=== PATIENT | female | born 1955 | race Caucasian/White ===

== ENCOUNTER → 2017-07-10 | Outpatient (CLI) | payer OTHER ==
[~2017-07-10] MED LIST: ATEN-173 PO; CYAN500T13 PO; ERGO500037 PO; FERR1TAB13 PO; FEXO1TAB58 PO; FOLI1TAB8 PO; FRS/40 PO; FURO-85 PO; GLC/500 PO; HYDR200T5 PO; HYDROCORTISONE PO; LEVO200T PO; POTA10CA28 PO; PRAV20TA PO; PSEU30TA PO; SERT50TA PO; SNG10 PO; TRAM-10 PO; WARF5TAB7 PO
== END | disposition home or self-care (01) ==
LOC: C.CTS 12:10
PROVIDERS: ATTEND Orthopaedic Surgery
DX: M19.011 Primary osteoarthritis, right shoulder (principal)

== ENCOUNTER 2017-08-10 06:18 | Inpatient (IN) | payer OTHER ==
[2017-07-10 13:19] VITALS: Ht 162.6 cm; Wt 101.2 kg
--- NOTE | 2017-07-10 14:09 | PAT Medication Instructions ---
Service Date Jul 10, 2017. Current Home Medication List Atenolol (Tenormin), 25 MG PO QAM Cyanocobalamin (Vitamin B12 500MCG), 500 MCG PO QAM Ergocalciferol (Vitamin D 80227 Unit), 50,000 UNIT PO Q2WK Ferrous Sulfate (Kp Ferrous Sulfate), 1 TAB PO QPM Fexofenadine-Pseudoephedrine (Olive-D 24 Hour Allergy), 1 TAB PO QAM Folic Acid (Folvite), 1 MG PO QAM Furosemide (Lasix), 20 MG PO QAM Furosemide (Lasix), 40 MG PO QAM Hydroxychloroquine Sulfate (Plaquenil), 200 MG PO QAM Levothyroxine Sodium (Synthroid), 200 MCG PO QAM Metformin Hcl (Glucophage), 500 MG PO QAM Montelukast Sod (Montelukast Sodium), 1 TAB PO QAM Potassium Chloride (Micro-K Ext Rel), 20 MEQ PO QAM Pravastatin (Pravachol ), 80 MG PO QPM Pseudoephedrine Hcl (Eq Suphedrine), 1 TAB PO QAM Sertraline (Zoloft), 50 MG PO QAM Tramadol (Ultram), 50 MG PO Q4H PRN for Pain Warfarin Sod (Jantoven), 5 MG PO M,T,W,R,F,SAT [Hydrocortisone], 10 MG PO QAM [Hydrocrortisone], 5 MG PO QPM Medication Instructions For Your Scheduled Surgery -Continue as directed: Ergocalciferol (Vitamin D 43736 Unit), 50,000 UNIT PO Q2WK -Contact your prescriber for instructions for: Warfarin Sod (Jantoven), 5 MG PO M,T,W,R,F,SAT - Hold the following medications 48 hours prior to surgery: Metformin Hcl (Glucophage), 500 MG PO QAM - Hold the following medications the morning of surgery: Folic Acid (Folvite), 1 MG PO QAM Furosemide (Lasix), 20 MG PO QAM Furosemide (Lasix), 40 MG PO QAM Fexofenadine-Pseudoephedrine (Olive-D 24 Hour Allergy), 1 TAB PO QAM Pseudoephedrine Hcl (Eq Suphedrine), 1 TAB PO QAM Potassium Chloride (Micro-K Ext Rel), 20 MEQ PO QAM Cyanocobalamin (Vitamin B12 500MCG), 500 MCG PO QAM - Take the following medications the morning of surgery with a sip of water: [Hydrocortisone], 10 MG PO QAM Tramadol (Ultram), 50 MG PO Q4H PRN for Pain (if needed, can be taken up to four hours before surgery) Atenolol (Tenormin), 25 MG PO QAM Montelukast Sod (Montelukast Sodium), 1 TAB PO QAM Hydroxychloroquine Sulfate (Plaquenil), 200 MG PO QAM Levothyroxine Sodium (Synthroid), 200 MCG PO QAM Sertraline (Zoloft), 50 MG PO QAM - Take the following medications as scheduled the night before surgery: [Hydrocrortisone], 5 MG PO QPM Tramadol (Ultram), 50 MG PO Q4H PRN for Pain (if needed) Pravastatin (Pravachol ), 80 MG PO QPM Ferrous Sulfate (Kp Ferrous Sulfate), 1 TAB PO QPM If you have any questions please call us at [phone] or [phone] or [phone]
--- NOTE | 2017-07-10 15:00 | DIAGNOSTIC IMAGING REPORT ---
CHEST 2 VIEWS ROUTINE CLINICAL HISTORY: Preoperative chest COMPARISON STUDY: No previous studies for comparison. FINDINGS: The cardiac and mediastinal contours are normal. There is no evidence of focal pulmonary consolidation. There is no evidence of failure. No pleural effusions are visualized.[ There is mild basilar interstitial thickening. IMPRESSION: No active disease in the chest. Electronically signed by: Lior Parekh M.D. 07/10/2017 2:59 PM Dictated Date/Time: 07/10/2017 2:58 PM
[2017-07-10 15:12] LABS: BASO % 0.2 %; BASO ABS # 0.01 K/uL (0-0.2); EOS % 0.3 %; EOS ABS # 0.02 K/uL (0-0.5); HEMATOCRIT 38.7 % (37-47); IG# 0.02 K/uL (0.00-0.02); LYMPH % 11.6 %; LYMPH ABS # 0.69 K/uL (1.2-3.4); MEAN CELL VOLUME 89.2 fL (80-100); MEAN CORPUSCULAR HGB CONC 33.6 g/dl (32-36); MEAN PLATELET VOLUME 9.9 fL (7.4-10.4); MONO % 1.2 %; MONO ABS # 0.07 K/uL (0.11-0.59); NEUT % 86.4 %; NEUT ABS # 5.15 K/uL (1.4-6.5); PLATELET COUNT 206 K/uL (130-400); RED CELL DISTRIBUTION WIDTH CV 13.5 % (11.5-14.5); RED CELL DISTRIBUTION WIDTH SD 44.3 fL (36.4-46.3); WHITE BLOOD COUNT 5.96 K/uL (4.8-10.8)
[2017-07-10 15:26] LABS: INR 2.5 (0.9-1.1); PTT PATIENT 38.3 SECONDS (21.0-31.0)
[2017-07-10 16:41] LABS: CALCIUM 8.7 mg/dl (8.5-10.1); CREATININE 0.62 mg/dl (0.60-1.20); POTASSIUM 4.2 mmol/L (3.5-5.1)
--- NOTE | 2017-08-09 14:43 | HISTORY & PHYSICAL EXAMINATION ---
DATE OF ADMISSION: 08/10/2017 HISTORY AND PHYSICAL ADMISSION NOTE CHIEF COMPLAINT: Avascular necrosis of the right shoulder. HISTORY OF PRESENT ILLNESS: Mariela is a pleasant 62-year-old female who has been having 4-month history of increasing right shoulder pain. She was reaching into her dryer to lift some laundry when she began having the pain in the shoulder. She saw her primary care physician who sent for an MRI. The MRI showed signs of avascular necrosis of the humeral head which looked as though about ready to collapse. After failing conservative treatment, she elected to proceed with total shoulder arthroplasty. PAST MEDICAL HISTORY: Significant for hypertension, hyperlipidemia, irregular heartbeat, TIA, diabetes, hypothyroidism, anemia, GERD, obesity, and hiatal hernia. PAST SURGICAL HISTORY: Significant for appendectomy, surgery to her right sinus cavity, an ORIF of the left femur and left tibia, removal of screws from the left femur, intramedullary nail fixation of the left femur, exploratory surgery of her bowels, left rotator cuff repair, lumbar laminectomy, and cholecystectomy. MEDICATIONS: Include Coumadin, hydrocortisone, Singulair, Synthroid, atenolol, metformin, Lasix, Zoloft, potassium chloride, folic acid, vitamin D3, ferrous sulfate, chlorothiazide, pravastatin, vitamin B12, tramadol, Olive SOCIAL HISTORY: She denies any tobacco, alcohol or IV drug use. FAMILY HISTORY: Denies. ALLERGIES: None. REVIEW OF SYSTEMS: She complains mostly of right shoulder pain. All other pertinent review of systems is negative. PHYSICAL EXAMINATION: GENERAL: She is awake, alert and orient x3. She is in no apparent distress. She is very pleasant. HEENT: Pupils equal, round, reactive to light. Extraocular motion was intact. Oral mucosa is pink, moist. HEART: Regular rate per radial pulse. LUNGS: Paola symmetrically bilaterally with no audible breath sounds. ABDOMEN: Soft, nontender, nondistended. MUSCULOSKELETAL: On physical examination of the shoulder, actively she has about 100 degrees of forward elevation, 100 degrees of abduction. Passing a little further, but she has a lot of pain. Most of her pain is over the anterior glenohumeral joint line and in the subacromial space. She has some pain in the area of the biceps as well. She has 4+/5 motion with full can testing mostly secondary to pain, 5/5 motion with external rotation. Negative belly press test. IMAGING DATA: MRI of the shoulder shows signs of avascular necrosis of the humeral head. It looks like it is about ready to collapse. There is questionable partial tearing of the rotator cuff. IMPRESSION: Avascular necrosis of the right shoulder. PLAN: Will proceed with a Biomet comprehensive right total shoulder arthroplasty. Postoperatively, she will be placed in an arm sling and kept overnight in the hospital for postoperative medical management. NAS
[~2017-08-10] VITALS: Ht 162.6 cm; Wt 101.2 kg
[2017-08-10] VITALS (9 sets, daily range): BP systolic 110–135; BP diastolic 69–83; PULSE 55–77; TEMP 36.5–36.9; O2SAT 92–98
[~2017-08-10 06:18] MED LIST changes: +ACETAMINOPHEN 500 MG TAB PO SCH; +CEFAZOLIN 2000MG IV PUSH 15 ML IV SCH; +FAMOTIDINE 20 MG TAB PO SCH; +GABAPENTIN 600 MG PO SCH; +LACTATED RINGER'S 1000ML IV SCH; +ROPIVACAINE 5MG/ML 30 ML 150 MG, BUPIVACAINE 0.5% MPF INJ 30 ML, EpINEphrine HCL INJ 0.... INFIL SCH; +SCOPOLAMINE 1.5 MG TDSY TD SCH
[2017-08-10] MEDS ORDERED: ROPIVACAINE 0.5% 5 MG/ML 30 ML VIAL ONE (06:29)
[2017-08-10] MEDS ORDERED: DEXAMETHASONE SOD INJ 4 MG/ML VIAL ONE ×2 (06:29→10:06)
--- NOTE | 2017-08-10 06:50 | History & Physical Bridge Note ---
H&P Re-Evaluation Bridge Note: I have examined the patient, reviewed the History & Physical and in the interval since the performance of the History & Physical I have noted the following changes of clinical significance: No changes noted
[2017-08-10 07:34] LABS: INR 1.3 (0.9-1.1); PTT PATIENT 29.3 SECONDS (21.0-31.0)
[2017-08-10] MEDS ORDERED: ENOX120I SQ (07:38)
[2017-08-10] MEDS ORDERED: MIDAZOLAM HCL 1 MG/ML 2ML VIAL ONE ×2 (08:18→08:31)
[2017-08-10] MEDS ORDERED: FENTANYL CITRATE INJ 50 MCG/1 ML 2 ML VIAL ONE ×2 (08:18→08:30)
[2017-08-10] MEDS: TRANEXAMIC ACID INJ 1,000 MG x 2 Bags IV SCH ×4 (08:24→13:43)
[2017-08-10] MEDS ORDERED: PROPOFOL IV EMULSION 10 MG/ML 20 ML VIAL IV ONE (08:29)
[2017-08-10] MEDS ORDERED: LIDOCAINE HCL 2% 2 ML VIAL (20MG/ML) ONE (08:29)
[2017-08-10] MEDS ORDERED: ORTHO JOINT ANESTHETIC ONE (08:49)
[2017-08-10] MEDS ORDERED: BACITRACIN 50000 UNIT VIAL ONE (08:49)
[2017-08-10] MEDS ORDERED: ATROPINE SULFATE 0.1 MG/ML 5ML SYR IV PRN (09:00)
[2017-08-10] MEDS ORDERED: ONDANSETRON INJ 2 MG/ML 2 ML VIAL IV PRN ×2 (09:00→11:15)
[2017-08-10] MEDS ORDERED: EpHEDrine SULFATE INJ 50 MG/ML AMP IV PRN (09:00)
[2017-08-10] MEDS ORDERED: PHENYLEPHRINE 100MCG/ML 5ML SYR IV PRN (09:00)
[2017-08-10] MEDS ORDERED: HYDROmorphone INJ 2 MG/ML SYR/VIAL IV PRN (09:00)
[2017-08-10] MEDS ORDERED: ONDANSETRON INJ 2 MG/ML 2 ML VIAL ONE (10:06)
[2017-08-10] MEDS ORDERED: EpHEDrine SULFATE 50MG/5ML SYR ONE (10:07)
[2017-08-10] MEDS ORDERED: PHENYLEPHRINE HCL INJ 10 MG/ML VIAL ONE (10:19)
[2017-08-10] MEDS ORDERED: ROCURONIUM BROMIDE 10 MG/ML 5 ML VIAL IV ONE (10:20)
[2017-08-10] MEDS ORDERED: NEOSTIGMINE METHYLSULFATE 5 MG/5 ML SYR ONE (10:38)
[2017-08-10] MEDS ORDERED: GLYCOPYRROLATE INJ 0.2 MG/ML VIAL ONE (10:39)
--- NOTE | 2017-08-10 11:00 | [facility] Post Operative Brief Note ---
Immediate Operative Summary Operative Date Aug 10, 2017. Pre-Operative Diagnosis Avascular necrosis of the right shoulder Post-Operative Diagnosis Avascular necrosis of the right shoulder Procedure(s) Performed Right Total Shoulder Arthroplaty Cemented Surgeon Dr. Rahat Lee Door Paneler Surgeon(s) Rahat Hayden PA-c Estimated Blood Loss 150 ml Findings Consistent with Post-Op Diagnosis Specimens Permanent Specimen: A: Humeral Head Anesthesia Type General Regional Complication(s) none Disposition Disposition: Recovery Room / PACU
[2017-08-10] MEDS ORDERED: GLUCOSE 10 TABS/TUBE PO PRN (11:15)
[2017-08-10] MEDS ORDERED: BISACODYL 10 MG SUPP PR PRN (11:15)
[2017-08-10] MEDS ORDERED: METOCLOPRAMIDE HCL INJ 5 MG/ML 2 ML VIAL IV PRN (11:15)
[2017-08-10] MEDS ORDERED: MoRPHine SULFATE 2 MG/ML CARP IV PRN (11:15)
[2017-08-10] MEDS ORDERED: DEXTROSE 50% 50 ML SYR IV PRN (11:15)
[2017-08-10] MEDS ORDERED: MAGNESIUM HYDROXIDE SUSP 30 ML UDC PO PRN (11:15)
[2017-08-10] MEDS ORDERED: SOD PHOSPHATE/SOD BIPHOSPHATE ENEMA 132 ML BTL PR PRN (11:15)
[2017-08-10] MEDS ORDERED: NALOXONE HCL 0.4 MG/1 ML VIAL/CARP IV PRN (11:15)
[2017-08-10] MEDS ORDERED: GLUCOSE 40% GEL 15 GM TUBE PO PRN (11:15)
[2017-08-10] MEDS ORDERED: GLUCAGON FOR INJ 1 MG VIAL SQ PRN (11:15)
[2017-08-10] MEDS ORDERED: OXYCODONE HCL IR 5 MG TAB (IMMEDIATE RELEASE) PO PRN (11:15)
--- NOTE | 2017-08-10 11:49 | DIAGNOSTIC IMAGING REPORT ---
R SHOULDER MIN 2 VIEWS ROUTINE CLINICAL HISTORY: Post shoulder surgery postoperative evaluation COMPARISON: None. DISCUSSION: Anatomic alignment post right shoulder arthroplasty. Surgical drains are in position. Expected soft tissue postoperative change IMPRESSION: Anatomic alignment post right shoulder arthroplasty. The above report was generated using voice recognition software. It may contain grammatical, syntax or spelling errors. Electronically signed by: Aubrey Marley M.D. 08/10/2017 11:48 AM Dictated Date/Time: 08/10/2017 11:47 AM
--- NOTE | 2017-08-10 12:17 | Anesthesiology Progress Note ---
Anesthesia Post Op Note Date & Time Aug 10, 2017 at 12:17 Vital Signs Pain Intensity: 0 Vital Signs Past 12 Hours Date Time Temp Pulse Resp B/P (MAP) Pulse Ox O2 Delivery O2 Flow Rate FiO2 08/10/17 12:05 36.4 65 15 121/66 96 Nasal Cannula 3 08/10/17 11:55 65 15 124/67 96 Nasal Cannula 3 08/10/17 11:45 70 20 125/70 95 Oxymask 10 08/10/17 11:35 74 13 118/63 94 Oxymask 10 08/10/17 11:27 36.2 76 16 129/69 95 Oxymask 10 08/10/17 07:49 36.6 55 20 135/83 96 Room Air Notes Mental Status: alert / awake / arousable, participated in evaluation Pt Amnestic to Procedure: Yes Nausea / Vomiting: adequately controlled Pain: adequately controlled Airway Patency, RR, SpO2: stable & adequate BP & HR: stable & adequate Hydration State: stable & adequate Anesthetic Complications: no major complications apparent
[2017-08-10] MEDS ORDERED: PHARMACY GLYCEMIC MGMT CONSULT PRN (13:23)
--- NOTE | 2017-08-10 13:40 | Pharmacy Progress Note ---
Glycemic Control Intl Consult Date of Service Aug 10, 2017. Scope Glycemic Pharmacist consulted by Dr Lee on 08/10/17 for glycemic control and to write orders per [facility] inpatient glycemic control protocol Objective Weight (Kilograms): 101.2 Accuchecks BSG (last 24hrs): Test 08/10/17 06:39 08/10/17 11:32 08/10/17 13:00 Bedside Glucose 125 mg/dl (70-90) 147 mg/dl (70-90) 149 mg/dl (70-90) Recent Pertinent Medications Outpatient Anti-diabetic Regimen: * Metformin 500mg PO daily Risk Factors for Insulin Resistance: * Steroids * Recent Surgery * Diet Assessment & Plan ASSESSMENT: * 62yo T2DM female with unknown degree of outpatient control. No recent A1c listed in chart. Will order with AM labs tomorrow per glycemic protocol * Pt is maintained on oral antidiabetic agents as an outpatient * Oral agents are not recommended for inpatient use d/t drug interactions, changing PO intake, and difficulty titrating for acute hyper/hypoglycemia. ADA recommends re-initiating outpatient oral agents 1-2 days prior to discharge if/ when appropriate if they were held on admission. * Will hold oral agents for admission and utilize SQ basal bolus insulin regimen which is the recommended regimen for inpatient glycemic control. * Will initiate weight based insulin dosing for insulin gonsalo patient and titrate based on BSG trends. * Will start with weight and stress of 2 since patient received 2 doses of IV dexamethasone but all BSGs <150 mg/dl so far. * Goal is to maintain all BSGs <200 mg/dl (ideally <150 mg/dl) to reduce the risk of mortality, infection, increased LOS etc. PLAN FOR INPATIENT GLYCEMIC CONTROL: * Holding outpatient oral diabetes medications * Will resume POD #1 or #2 when PO intake adequate and renal function assessed * Basal insulin * Lantus 35 units SQ x 1 dose KARLOS * Long acting basal insulin needed to cover long duration of action of dexamethasone * Bolus insulin * NovoLog per scale ACHS or Q6hrs while NPO * Goal Range: Low 110 mg/dL - High 140 mg/dL * Correction Factor: 15 mg/dL/unit * Nutritional / Prandial insulin per carb ratio of 1 unit per 5 grams CHO consumed * A1c with AM labs * Please note that the plan above was derived based on current level of insulin resistance and hospital stress. These recommendations are appropriate for inpatient admission only. Plan of care upon discharge will need to be reassessed to avoid potential outpatient hypo/hyperglycemia. Thank you.
[2017-08-10] MEDS: POTASSIUM CHLORIDE INJ 10 MEQ in SODIUM CHLORIDE 0.9% 1000ML 1,000 ML IV SCH (13:44)
[2017-08-10] MEDS ORDERED: LANTUS PER UNIT CHARGE SQ SCH (14:30)
[2017-08-10] MEDS: ACETAMINOPHEN IV 1,000 MG in EMPTY BAG 0 ML IV SCH ×2 (14:42→22:29)
[2017-08-10] MEDS: KETOROLAC TROMETHAMINE 30 MG/ML VIAL IV. SCH ×2 (14:44→20:25)
[2017-08-10] MEDS: INSULIN ASPART 100 UNITS/ML 3 ML PEN SC SCH ×3 (14:56→22:27)
--- NOTE | 2017-08-10 15:53 | OPERATIVE REPORT ---
DATE OF OPERATION: 08/10/2017 PREOPERATIVE DIAGNOSIS: Avascular necrosis of the right shoulder. POSTOPERATIVE DIAGNOSIS: Same. PROCEDURE: Right total shoulder arthroplasty. SURGEON: Dr. Rahat Lee. ROLL FORMING MACHINE OPERATOR: Rohan Hayden PA-C, whose assistance was necessary for retraction and closure. ANESTHESIA: General with a right interscalene nerve block. COMPLICATIONS: None. CONDITION: Stable to PACU. INDICATIONS: Mariela is a very pleasant 62-year-old female who presented to my office with chronic increasing right shoulder pain. MRI was diagnostic for avascular necrosis of the humeral head. After failing conservative treatment, she elected to undergo a right total shoulder arthroplasty. OPERATION AND FINDINGS: On 08/10/2017, she arrived at [facility] for the above procedure. She was seen in the preoperative holding area and the operative extremity was identified and signed, she was given a preoperative antibiotic and a right interscalene nerve block. She was taken back to the operating room, laid on the table in supine position and put under general anesthesia. She was put into the beachchair position. The right shoulder was prepped and draped in sterile fashion. Time-out was done. The patient's extremity was properly identified. A deltopectoral approach was used. Dissection was taken down through the deltopectoral interval and the anterior shoulder was exposed. The long head of the biceps tendon was tenodesed to the upper border of the major. The subscapularis was tenotomized off the lesser tuberosity with a centimeter of cuff tissue remaining. The proximal humerus was exposed. Sequential reaming of the humerus up to a size 9 reamer was done. Off that reamer, a proximal humeral resection guide was placed. The proximal humerus was resected at 135 degrees of inclination and 30 degrees of retroversion. The head was removed and the glenoid was exposed. Time was spent doing minimal labral release. The Anapsis signature guide was then snapped on to the anterior aspect of the glenoid and a guide pin was placed in the total shoulder arthroplasty hole. A small glenoid was then reamed and a central peg hole was then drilled. Three peripheral peg holes were then drilled and the final glenoid was then cemented into place. The proximal humerus was then exposed. Sequential broaching up to a size 9 broach was done. A size 42 x 18 mm eccentric head was trialed, the shoulder was brought through a full range of motion and felt to be stable. The broach was then removed. A final size 9 mini stem was then impacted into place. A 42 x 18 mm eccentric head was then impacted into place. The shoulder was reduced, brought through a full range of motion and felt to be stable. The subscapularis was tenodesed back to the lesser tuberosity with transosseous FiberWire sutures and [id number] sutures. Two sutures were placed in the lateral rotator interval. The surrounding soft tissues were injected with 100 mL of an orthopedic pain control cocktail. The wound was then irrigated with 3 liters normal saline solution with bacitracin. The axillary nerve was palpated. A drain was placed. Skin was closed with 2-0 Vicryl, 3-0 V-Loc suture and may. She was then placed in a soft dressing and regular arm sling. She was then extubated, transferred to a litter and taken to the post and she came in stable condition. She tolerated the procedure well. IMPLANTS USED: I used a Biomet comprehensive right total shoulder arthroplasty with a small glenoid with a Regenerex post and a size 9 mini pressfit stem with a 42 x 18 mm eccentric head. The glenoid was cemented with Palacos-G cement. I attest to the content of the Intraoperative Record and any orders documented therein. Any exception s are noted below.
[2017-08-10] MEDS: CHECK SCOPOLAMINE PATCH PLACEMENT SCH (16:20)
[2017-08-10] MEDS: CEFAZOLIN IV 2,000 MG in SYRINGE 0 ML IV SCH (17:40)
[2017-08-10] MEDS: DOCUSATE SODIUM 100 MG CAP PO SCH (20:42)
[2017-08-10] MEDS ORDERED: FERROUS SULFATE 325 MG TAB PO SCH (21:00)
[2017-08-10] MEDS ORDERED: HYDROCORTISONE 10 MG TAB PO SCH (21:00)
[2017-08-10] MEDS ORDERED: PRAVASTATIN SOD 40 MG TAB PO SCH (21:00)
[2017-08-10] MEDS ORDERED: SENNA 8.6 MG TAB PO SCH (21:00)
[2017-08-11] MEDS: POTASSIUM CHLORIDE INJ 10 MEQ in SODIUM CHLORIDE 0.9% 1000ML 1,000 ML IV SCH ×2 (00:26→09:06)
[2017-08-11] MEDS: CHECK SCOPOLAMINE PATCH PLACEMENT SCH ×2 (00:26→08:01)
[2017-08-11] MEDS: CEFAZOLIN IV 2,000 MG in SYRINGE 0 ML IV SCH (00:26)
[2017-08-11] MEDS: KETOROLAC TROMETHAMINE 30 MG/ML VIAL IV. SCH ×2 (02:12→08:01)
[2017-08-11 03:04] VITALS: BP 151/81; PULSE 56; TEMP 36.7; O2SAT 96
[2017-08-11] MEDS ORDERED: LEVOTHYROXINE 200 MCG TAB PO SCH (06:00)
[2017-08-11 06:04] LABS: HEMATOCRIT 32.8 % (37-47); HEMOGLOBIN 11.3 g/dL (12.0-16.0); MEAN CELL VOLUME 89.4 fL (80-100); MEAN CORPUSCULAR HEMOGLOBIN 30.8 pg (25-34); MEAN CORPUSCULAR HGB CONC 34.5 g/dl (32-36); PLATELET COUNT 187 K/uL (130-400); RED CELL DISTRIBUTION WIDTH CV 13.9 % (11.5-14.5); RED CELL DISTRIBUTION WIDTH SD 45.8 fL (36.4-46.3); WHITE BLOOD COUNT 14.04 K/uL (4.8-10.8)
[2017-08-11] MEDS: ACETAMINOPHEN IV 1,000 MG in EMPTY BAG 0 ML IV SCH (06:04)
[2017-08-11 06:40] LABS: CALCIUM 8.4 mg/dl (8.5-10.1); CREATININE 0.72 mg/dl (0.60-1.20); POTASSIUM 3.6 mmol/L (3.5-5.1)
[2017-08-11] MEDS ORDERED: RXC5 PO (07:10)
--- NOTE | 2017-08-11 07:11 | Discharge Instructions ---
Discharge Instructions Date of Service Aug 11, 2017. Admission Reason for Admission: Right Shoulder Degenerative Joint Disease Discharge Discharge Diagnosis / Problem: Right Total Shoulder Discharge Goals Goal(s): Decrease discomfort, Improve function Activity Recommendations Activity Limitations: as noted below . Instructions / Follow-Up Instructions / Follow-Up Activity and Therapy Recommendations: * Wear your sling for 3 weeks, unless otherwise instructed. You may remove your sling to shower and to dress, but otherwise, you should be in your sling at all times, including while sleeping * The shoulder replacement is very stable and you can use your hand while in the sling * Physical Therapy should start about 3-5 days from your day of surgery. Therapy will last about 8-12 weeks * You were shown a series of exercises in the hospital. Do these exercises daily including the exercises you were shown in physical therapy. Medications: * Narcotic You will likely be sent home from the hospital with a prescription for the narcotic pain medication that worked best throughout your stay. * Other medications may be prescribed for specific circumstances. If you have any questions, please call the office at . * Resume previous home medications unless otherwise instructed Showering: You may shower 5 days from the day of surgery. Let the soapy shower water run over the may. Do not scrub or soak the incision. Things To Watch For: * Drainage from the incision site that occurs more than one week after your surgery. * Increased redness at the incision site. * Fever above 102 degrees Fahrenheit. * Unusual chest pain or shortness of breath. * Call [facility] at with any of the above problems Follow-Up Visit: Follow-up with Dr. Lee 2-3 weeks after your day of surgery. An appointment was probably scheduled when you signed-up for surgery in the office. If you have any questions call Office Instructions: More detailed instructions as well as Frequently Asked Questions were provided in a folder by our office when you signed-up for surgery. Please review these instructions when you get home. If you have any further questions or concerns, please feel free to call the office at [phone] Current Hospital Diet Patient's current hospital diet: Gluten Free Diet Discharge Diet Recommended Diet: Gluten Free Diet Procedures Procedures Performed: Right Total Shoulder Arthroplaty Cemented Pending Studies Studies pending at discharge: no Laboratory Results Hemoglobin A1c Test 08/11/17 05:35 Range/Units Medical Emergencies . Who to Call and When: Medical Emergencies: If at any time you feel your situation is an emergency, please call 911 immediately. . Non-Emergent Contact Non-Emergency issues call your: Surgeon Call Non-Emergent contact if: wound has increased drainage, wound has increased redness . "Provider Documentation" section prepared by Rahat Lee. . VTE Core Measure Inpt VTE Proph given/why not?: Treatment not indicated
[2017-08-11 07:18] LABS: HEMOGLOBIN A1C 6.7 % (4.5-5.6)
[2017-08-11 07:28] VITALS: BP 122/76; PULSE 52; TEMP 36.7; O2SAT 95
[2017-08-11] MEDS ORDERED: WARFARIN SOD 5 MG TAB PO ONE (07:30)
[2017-08-11] MEDS ORDERED: METFORMIN HCL 500 MG TAB PO SCH (08:30)
--- NOTE | 2017-08-11 08:39 | PROGRESS NOTE ---
DATE: 08/11/2017 CHIEF COMPLAINT: Status post right total shoulder arthroplasty postop day #1 in progress. Mariela was seen and examined at bedside today. Overall, she is doing very well. She has very little pain in her shoulder. She has been up and ambulating to the bathroom last night. She has no complaints. PHYSICAL EXAMINATION: RIGHT SHOULDER: The dressing is clean and dry and the drain is to suction. She is wearing her sling as instructed. Her radial, median and ulnar nerves are checked and intact. Her axillary nerve was not checked yet. LABORATORY DATA: She has an H&H today of 11.3 and 32.8. Her glucose is 155. Her vital signs are all stable on room air. She is voiding on her own. IMAGING: X-rays postoperatively of the right shoulder show the prosthesis to be in anatomic alignment without any evidence of fracture, dislocation or loosening. IMPRESSION: Status post right total shoulder arthroplasty postop day #1. PLAN: At this point, she is doing as well as expected. Her pain is well controlled. She will be seen by physical therapy today for hand, wrist, elbow and pendulum exercises. I started her back on her Coumadin. Last night, I held on her Lovenox for now with concerns of postoperative bleeding with such a high dose. When she goes home today, she can continue her Coumadin and start back on her Lovenox as per the Coumadin Clinic.
[2017-08-11 08:52] VITALS: BP 122/76; TEMP 36.7; O2SAT 95
[2017-08-11] MEDS ORDERED: POTASSIUM CHLORIDE 10 MEQ TABCR PO SCH (09:00)
[2017-08-11] MEDS ORDERED: HYDROCORTISONE 10 MG TAB PO SCH (09:00)
[2017-08-11] MEDS ORDERED: FUROSEMIDE 40 MG TAB PO SCH (09:00)
[2017-08-11] MEDS ORDERED: PSEUDOEPHEDRINE HCL 30 MG TAB PO SCH (09:00)
[2017-08-11] MEDS ORDERED: CYANOCOBALAMIN 500 MCG TAB (VIT B-12) PO SCH (09:00)
[2017-08-11] MEDS ORDERED: HYDROXYCHLOROQUINE SULFATE 200 MG TAB PO SCH (09:00)
[2017-08-11] MEDS ORDERED: MONTELUKAST SOD 10 MG TAB PO SCH (09:00)
[2017-08-11] MEDS ORDERED: MULTIVITAMIN TAB PO SCH (09:00)
[2017-08-11] MEDS ORDERED: SERTRALINE HCL 50 MG TAB PO SCH (09:00)
[2017-08-11] MEDS: DOCUSATE SODIUM 100 MG CAP PO SCH (09:37)
[2017-08-11] MEDS: INSULIN ASPART 100 UNITS/ML 3 ML PEN SC SCH (09:42)
[2017-08-11 09:46] VITALS: PULSE 54; PULSE 64
--- NOTE | 2017-08-11 13:33 | DISCHARGE SUMMARY ---
DISCHARGE DIAGNOSES: Avascular necrosis of the right shoulder. PROCEDURE: Right total shoulder arthroplasty on 08/10/[address] Rahat Lee. DISCHARGE INSTRUCTIONS: 1. Oxycodone 5 mg every 4 hours as needed for pain. 2. Continue Coumadin 5 mg daily as per Coumadin clinic. 3. Start back up on Lovenox 120 mg every 12 hours as per Coumadin clinic, starting later today. 4. Atenolol 25 mg daily. 5. Vitamin B12 500 mcg daily. 6. Vitamin D 50,000 units every 2 weeks. 7. Ferrous sulfate 325 mg daily. 8. Olive-D daily. 9. Folvite 1 mg daily. 10. Lasix 40 mg daily. 11. Plaquenil 200 mg daily. 12. Synthroid 200 mcg daily. 13. Glucophage 500 mg daily. 14. Singulair 10 mg daily. 15. Potassium 20 mEq daily. 16. Pravachol 80 mg daily. 17. Pseudoephedrine 30 mg tab daily. 18. Zoloft 50 mg daily. 19. Ultram 50 mg as needed for pain. 20. Hydrocortisone 10 mg in the morning and 5 mg in the evening. 21. Right arm sling for 3 weeks. 22. Follow up with Dr. Lee in 2 weeks. 23. Call the office of Dr. Lee with any questions or concerns. HOSPITAL COURSE: Mariela is a very pleasant 62-year-old female who presented to my office with complaints of chronic increasing right shoulder pain. MRI and clinical examination were diagnostic for advanced avascular necrosis of the right proximal humerus. After failing conservative treatment, she elected to undergo a total shoulder arthroplasty. On 08/10/2017, 07/29/2017 she arrived at [facility] and underwent a right total shoulder arthroplasty without complication. She had a general anesthetic and a right interscalene nerve block. Postoperatively, she was placed in an arm sling and discharged to general orthopedic floor. Her hospital course was uneventful. On postop day #1, her H&H was stable at 11.3 and 32.8. She was able to participate well with physical therapy, doing hand, wrist, elbow and pendulum exercises. She did get her a dose of Coumadin while in the hospital and I advised her to take her next dose of Coumadin later this evening after discharge. She is recommended 120 mg of Lovenox twice a day, which is the high dose especially postsurgical, so she is going to start back up later today when she goes home once the risk of having bleeding complications has subsided. I will see her back in the office in 2 weeks and she is being discharged to home with the above instructions.
== END 2017-08-11 11:19 | disposition home or self-care (01) | DRG 483 ==
LOC: C.ACU 06:18 → C.3E 11:08 → ENRESERV 11:54
PROVIDERS: ADMIT Orthopaedic Surgery; ATTEND Orthopaedic Surgery
PROC: 0RRJ0JZ Replacement of Right Shoulder Joint with Synthetic Substitute, Open Approach (ICD-10-PCS; principal; 2017-08-10 09:00)
DX: M87.321 Other secondary osteonecrosis, right humerus (principal); I10 Essential (primary) hypertension; E11.9 Type 2 diabetes mellitus without complications; E78.5 Hyperlipidemia, unspecified; E03.9 Hypothyroidism, unspecified; E66.9 Obesity, unspecified; Z79.899 Other long term (current) drug therapy; Z79.01 Long term (current) use of anticoagulants; Z79.84 Long term (current) use of oral hypoglycemic drugs; Z79.52 Long term (current) use of systemic steroids; Z86.73 Personal history of transient ischemic attack (TIA), and cerebral infarction without residual deficits; Z68.38 Body mass index [BMI] 38.0-38.9, adult

== ENCOUNTER 2019-01-17 07:28 | Inpatient (IN) ==
--- NOTE | 2018-12-16 11:05 | PAT Medication Instructions ---
Medication Instructions Date of Service December 16, 2018 Home Medications atenolol 25 mg PO QAM cyanocobalamin (vitamin B-12) 500 mcg PO QAM ergocalciferol (vitamin D2) [Vitamin D2] 50,000 unit PO UD ferrous sulfate 325 mg PO QPM fexofenadine [Olive Allergy] 180 mg PO QAM folic acid 1 mg PO QAM furosemide 60 mg PO QAM hydrocortisone 2.5 mg PO BID hydrocortisone sod succinate [Solu-Cortef] 100 mg IM UD hydroxychloroquine 400 mg PO QAM levothyroxine [Synthroid] 200 mcg PO QAM metformin 500 mg PO QAM montelukast 10 mg PO QAM potassium chloride 20 meq PO QAM pravastatin 80 mg PO QPM pseudoephedrine HCl 30 mg PO QAM sertraline 50 mg PO QAM warfarin 5 mg PO QPM Continue as directed ergocalciferol (vitamin D2) [Vitamin D2] 50,000 unit PO UD ASK your prescriber and surgeon warfarin 5 mg PO QPM hydroxychloroquine 400 mg PO QAM DO NOT take the morning of surgery cyanocobalamin (vitamin B-12) 500 mcg PO QAM fexofenadine [Olive Allergy] 180 mg PO QAM folic acid 1 mg PO QAM furosemide 60 mg PO QAM metformin 500 mg PO QAM montelukast 10 mg PO QAM potassium chloride 20 meq PO QAM pseudoephedrine HCl 30 mg PO QAM Take morning of surgery With a small sip of water, OTHERWISE NOTHING TO EAT OR DRINK AFTER MIDNIGHT: atenolol 25 mg PO QAM hydrocortisone 2.5 mg PO BID levothyroxine [Synthroid] 200 mcg PO QAM sertraline 50 mg PO QAM Take evening before surgery ferrous sulfate 325 mg PO QPM hydrocortisone 2.5 mg PO BID pravastatin 80 mg PO QPM Other Notes If you have any questions please call us at [phone] or [phone] or [phone] or [phone]
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
--- NOTE | 2018-12-16 12:59 | XRay Report ---
XR chest Pre-admission PA/Lat CLINICAL HISTORY: 63 years-old Female presenting with preoperative assessment. TECHNIQUE: PA and lateral views of the chest were obtained. COMPARISON: 07/10/2017. FINDINGS: Atherosclerosis of the aortic arch. Cardiac silhouette normal in size. Lungs and pleural spaces clear . Right shoulder arthroplasty. Cholecystectomy clips noted. IMPRESSION: 1. No acute cardiopulmonary disease. Electronically signed by: Servando Mazariegos M.D. 12/16/2018 12:58 PM
[2018-12-16 13:20] LABS: Basophils # (auto) 0.02 K/uL (0-0.2); Basophils % (auto) 0.4 %; Eosinophils # (auto) 0.07 K/uL (0-0.5); Eosinophils % (auto) 1.2 %; Hematocrit (blood only) 40.9 % (37-47); Hemoglobin 13.7 g/dL (12.0-16.0); Immature Granulocytes # (auto) 0.01 K/uL (0.00-0.02); Immature Granulocytes % (auto) 0.2 %; Lymphocytes # (auto) 1.56 K/uL (1.2-3.4); Lymphocytes % (auto) 27.5 %; Mean Corpuscular Hgb Conc 33.5 g/dL (32-36); Mean Corpuscular Volume 88.1 fL (80-100); Mean Platelet Volume 10.4 fL (7.4-10.4); Neutrophils # (auto) 3.62 K/uL (1.4-6.5); Neutrophils % (auto) 63.7 %; Platelet Count 254 K/uL (130-400); RDW Coefficient of Variation 12.8 % (11.5-14.5); Red Blood Count 4.64 M/uL (4.2-5.4); White Blood Count 5.68 K/uL (4.8-10.8)
[2018-12-16 13:24] LABS: Appearance Urine Clear (Clear); Bilirubin Urine Negative (Negative); Blood Urine Negative (Negative); Color Urine Dark Yellow; Glucose Urine UA Negative (Negative); Ketones Urine Negative (Negative); Leukocyte Esterase Urine Negative (Negative); Nitrite Urine Negative (Negative); Protein Urine Negative (Negative); Specific Gravity Urine 1.026 (1.000-1.030); Urobilinogen Urine Negative (Negative)
[2018-12-16 13:27] LABS: BUN Creatinine Ratio 14.2 (10-20); Calcium 8.1 mg/dl (8.5-10.1); Creatinine Clr Calc Pharmacy 117.8 ml/min; Est GFR (African American) 114.8; Potassium 3.3 mmol/L (3.5-5.1)
[2018-12-16 13:32] LABS: Partial Thromboplastin Ratio 1.2; Partial Thromboplastin Time 31.9 Seconds (21.0-31.0); Prothrombin Time 19.3 Seconds (9.0-12.0)
[2018-12-16 13:45] LABS: Estimated Average Glucose 128 mg/dl; Hemoglobin A1C 6.1 % (4.5-5.6)
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
[~2019-01-17 07:28] MED LIST changes: -ATEN-173 PO; +CEFAZOLIN 2000MG 2,000 MG/15 ML SYR IV SCH; -CEFAZOLIN 2000MG IV PUSH 15 ML IV SCH; -CYAN500T13 PO; -ERGO500037 PO; -FERR1TAB13 PO; -FEXO1TAB58 PO; -FOLI1TAB8 PO; -FRS/40 PO; -FURO-85 PO; -GABAPENTIN 600 MG PO SCH; +GABAPENTIN 900 MG DOSE PO SCH; -GLC/500 PO; -HYDR200T5 PO; -HYDROCORTISONE PO; -LACTATED RINGER'S 1000ML IV SCH; -LEVO200T PO; +LR 500ML BOLUS, THEN 15ML/HR IV SCH; +LR 60ML/HR IV SCH; -POTA10CA28 PO; -PRAV20TA PO; -PSEU30TA PO; +ROPIVACAINE 0.5% HCL/PF 150 MG, BUPIVACAINE 0.5% MPF 30 ML, EPINEPHrine 30MG/30ML (OR U... INSTIL SCH; -ROPIVACAINE 5MG/ML 30 ML 150 MG, BUPIVACAINE 0.5% MPF INJ 30 ML, EpINEphrine HCL INJ 0.... INFIL SCH; -SERT50TA PO; -SNG10 PO; -TRAM-10 PO; +TRANEXAMIC ACID 1,000 MG **IV Intra-op IV SCH; +TRANEXAMIC ACID 1,000 MG **IV Pre-op IV SCH; -WARF5TAB7 PO
[2019-01-17] MEDS ORDERED: ROPIVACAINE 0.5% 5 MG/ML 30 ML VIAL ONE (07:31)
[2019-01-17] MEDS ORDERED: BUPIVACAINE 0.5 % 5 MG/1 ML PF 10ML VIAL ONE (07:32)
[2019-01-17] MEDS ORDERED: fentaNYL citrate 100 MCG/2 ML VIAL ONE (07:44)
[2019-01-17] MEDS ORDERED: MIDAZOLAM HCL 1 MG/ML 2ML VIAL ONE (07:44)
[2019-01-17] MEDS ORDERED: PROPOFOL IV EMULSION 10 MG/ML 20 ML VIAL IV ONE (07:44)
[2019-01-17] MEDS ORDERED: LIDOCAINE HCL 2% 2 ML VIAL/AMP(20MG/ML) INFIL ONE (07:44)
--- NOTE | 2019-01-17 08:46 | History & Physical Bridge Note ---
Date of Service January 17, 2019 History & Physical Bridge Note I have examined the patient, reviewed the History & Physical and in the interval since the performance of the History & Physical I have noted the following changes of clinical significance: no changes noted
[2019-01-17 09:00] LABS: INR 1.1 (0.9-1.1); Partial Thromboplastin Time 27.1 Seconds (21.0-31.0); Prothrombin Time 10.9 Seconds (9.0-12.0)
[2019-01-17] MEDS ORDERED: ORTHO JOINT ANESTHETIC ONE (09:08)
[2019-01-17] MEDS ORDERED: ePHEDrine sulfate 50 MG/ML AMP IV PRN (10:12)
[2019-01-17] MEDS ORDERED: KETOROLAC 30 MG/ML VIAL IV PRN (10:12)
[2019-01-17] MEDS ORDERED: HYDROmorphone INJ 1 MG/ML SYRINGE IV PRN (10:12)
[2019-01-17] MEDS ORDERED: ONDANSETRON INJ 2 MG/ML 2 ML VIAL IV PRN ×2 (10:12→13:30)
[2019-01-17] MEDS ORDERED: ATROPINE SULFATE 0.1 MG/ML 10ML SYR IV PRN (10:12)
[2019-01-17] MEDS ORDERED: HYDROCORTISONE SOD SUCCINATE 100 MG/2 ML VIAL ONE (10:22)
[2019-01-17] MEDS ORDERED: ONDANSETRON INJ 2 MG/ML 2 ML VIAL ONE (10:22)
[2019-01-17] MEDS ORDERED: ePHEDrine sulfate 50 MG/ML SYR ONE (10:40)
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
--- NOTE | 2019-01-17 13:06 | XRay Report ---
XR knee LT 2V routine HISTORY: 63 years-old Female Surgical Post Op [knee total joint arthroplasty. History of degenerativ e joint disease COMPARISON: CT of the left knee 12/16/2018 TECHNIQUE: 2 views of the left knee FINDINGS: Partially imaged elongated medullary tonia with distal fixation screw noted about the left femur with r emote distal diaphyseal fracture deformity. Postoperative changes from recent left knee total joint a rthroplasty with patellar resurfacing. Satisfactory alignment without acute fracture. Anterior midlin e skin may with expected postsurgical soft tissue swelling and deep tissue air. IMPRESSION: Left knee total joint arthroplasty and patella resurfacing demonstrates satisfactory alig nment. The above report was generated using voice recognition software. It may contain grammatical, syntax o r spelling errors. Electronically signed by: Nick Amador M.D. 01/17/2019 1:04 PM
--- NOTE | 2019-01-17 13:13 | Anesthesiology Progress Note ---
Date of Service January 17, 2019 Anesthesia Post Procedure Vital Signs Vital Signs: Temp Pulse Pulse Resp BP BP Pulse Ox 01/17/19 13:00 37.1 C 60 16 110/57 L 97 01/17/19 12:50 62 16 103/62 98 01/17/19 12:40 59 L 14 112/63 97 01/17/19 12:30 58 L 14 109/61 95 01/17/19 12:20 36.5 C 62 14 108/58 L 97 01/17/19 07:56 36.9 C 54 L 16 132/75 97 Pain Intensity Left Knee: Pain Intensity: 4 Transfer of Care Handoff Completed per policy Notes Mental Status: alert / awake / arousable Patient Amnestic to Procedure: Yes Nausea / Vomiting: adequately controlled Pain: adequately controlled Airway Patency, RR, SpO2: stable & adequate BP & HR: stable & adequate Hydration State: stable & adequate Neuraxial Anesthesia: was administered and sensory block is resolving Anesthetic Complications: no major complications apparent
[2019-01-17] MEDS ORDERED: BISACODYL 10 MG SUPP PR PRN (13:30)
[2019-01-17] MEDS ORDERED: HYDROmorphone INJ 0.5 MG/0.5 ML SYR IV PRN (13:30)
[2019-01-17] MEDS ORDERED: NALOXONE HCL 0.4 MG/1 ML VIAL/CARP IV PRN (13:30)
[2019-01-17] MEDS ORDERED: METOCLOPRAMIDE HCL INJ 5 MG/ML 2 ML VIAL IV PRN (13:30)
[2019-01-17] MEDS ORDERED: MAGNESIUM HYDROXIDE SUSP 30 ML UDC PO PRN (13:30)
--- NOTE | 2019-01-17 14:25 | Pharmacy Report ---
Glycemic Control Consultation - Date of Service January 17, 2019 - Scope Scope: Glycemic Pharmacist consulted by BRUCE Hayden on 01/17/19 for glycemic control and to write orders per [facility] inpatient glycemic control protocol - Objective Weight: 94.3 kg Accuchecks BSG (last 24hrs): 01/17/19 07:51 POC Glucose 92 HbA1c: Hemoglobin A1c 6.1 % (4.5-5.6) H 12/16/18 12:03 - Recent Pertinent Medications Outpatient Anti-diabetic Regimen: * metformin 500 mg daily * A1c = 6.1 % 12/16/18 Risk Factors for Insulin Resistance: * Steroids: dexamethasone 4 mg topically * Recent Surgery: POD 0 * Diet: T2DM - Assessment & Plan Assessment & Plan: ASSESSMENT: * Ms Goodwin is a 63 y/o F with a PMH of well controlled T2DM on oral medications. She presents with L TKA. * Since patient only received topical dexamethasone 4 mg with a WELL controlled outpatient HbA1C, will utilize weight-based stress of 2 Novolog (concern for using weight-based stress of 3 in obese individual -- may be too aggressive). Schedule small dose of Lantus for this evening depending on blood sugar. Goal is to cover blood sugar spikes with Novolog rather than Lantus * Pt is maintained on oral antidiabetic agents as an outpatient * Oral agents are not recommended for inpatient use d/t drug interactions, changing PO intake, and difficulty titrating for acute hyper/hypoglycemia. ADA recommends re-initiating outpatient oral agents 1-2 days prior to discharge if/when appropriate if they were held on admission. * Will hold oral agents for admission and utilize SQ basal bolus insulin regimen which is the recommended regimen for inpatient glycemic control. * Will initiate weight based insulin dosing for insulin gonsalo patient and titrate based on BSG trends. * plan to resume metformin POD 1 or 2 depending on intake and kidney function * ADA & AACE recommend a goal blood sugar range 140-180 mg/dl for the majority of critically ill & non-critically ill patients. However, more stringent targets may be selected in individual cases. Will utilize more stringent goal of 110-140mg/dl based on patient age & comorbidities. Additionally, tighter glycemic control is warranted to facilitate wound/infection healing. PLAN FOR INPATIENT GLYCEMIC CONTROL: * Holding outpatient oral diabetes medications - plan to resume tomorrow or POD 2 * Basal insulin * Lantus 0-15 units SQ HS x 1 * no Lantus if blood sugar 160 mg/dL * 10 units if blood sugar 160-180 mg/dL * 15 units if blood sugar over 180 mg/dL * Bolus insulin * NovoLog per scale ACHS or Q6hrs while NPO * Goal Range: Low 110 mg/dL - High 140 mg/dL * Correction Factor: 25 mg/dL/unit * Nutritional / Prandial insulin per carb ratio of 1 unit per 8 grams CHO consumed RECOMMENDATION FOR DISCHARGE * patient's HbA1C well controlled - continue home regimen. * Please note that the plan above was derived based on current level of insulin resistance and hospital stress. These recommendations are appropriate for inpatient admission only. Plan of care upon discharge will need to be reassessed to avoid potential outpatient hypo/hyperglycemia. Thank you.
[2019-01-17] MEDS ORDERED: GLUCOSE 40% GEL 15 GM TUBE PO PRN (14:30)
[2019-01-17] MEDS ORDERED: DEXTROSE 50% 50 ML SYRINGE IV PRN (14:30)
[2019-01-17] MEDS ORDERED: GLUCOSE 10 TABS/TUBE PO PRN (14:30)
[2019-01-17] MEDS ORDERED: CARBOHYDRATES FOR HYPOGLYCEMIA PO PRN (14:30)
[2019-01-17] MEDS ORDERED: GLUCAGON FOR INJ 1 MG VIAL IM PRN (14:30)
[2019-01-17] MEDS ORDERED: PHARMACY GLYCEMIC MGMT CONSULT PRN (15:09)
[2019-01-17] MEDS: INSULIN ASPART 100 UNITS/ML 3 ML PEN SC SCH ×3 (15:31→21:01)
[2019-01-17] MEDS ORDERED: WARFARIN SOD 5 MG TAB PO SCH (16:00)
[2019-01-17] MEDS ORDERED: CHECK SCOPOLAMINE PATCH PLACEMENT SCH (16:00)
[2019-01-17] MEDS: ENOXAPARIN INJ 40 MG/0.4 ML SYR SQ SCH (16:21)
[2019-01-17] MEDS: ACETAMINOPHEN 500 MG TAB PO SCH ×2 (16:23→23:19)
[2019-01-17] MEDS: ORTHO WARFARIN NOMOGRAM SCH (16:24)
[2019-01-17] MEDS: SODIUM CHLORIDE 0.9% 1000ML 1,000 ML IV SCH (17:39)
[2019-01-17] MEDS: HYDROCORTISONE SOD 25 MG in SYRINGE 0 ML IV SCH (18:03)
[2019-01-17] MEDS: OXYCODONE HCL IR 5 MG TAB (IMMEDIATE RELEASE) PO PRN (18:08)
[2019-01-17] MEDS: CEFAZOLIN 2000MG 2,000 MG/15 ML SYR IV SCH (18:13)
[2019-01-17] MEDS: FERROUS SULFATE 325 MG TAB PO SCH (20:59)
[2019-01-17] MEDS: SENNA 8.6 MG TAB PO SCH (20:59)
[2019-01-17] MEDS: PRAVASTATIN SOD 40 MG TAB PO SCH (20:59)
[2019-01-17] MEDS: DOCUSATE SODIUM 100 MG CAP PO SCH (20:59)
[2019-01-17] MEDS ORDERED: LANTUS PER UNIT CHARGE SQ SCH (21:00)
[2019-01-18] MEDS: SODIUM CHLORIDE 0.9% 1000ML 1,000 ML IV SCH (00:25)
[2019-01-18] MEDS: HYDROCORTISONE SOD 25 MG in SYRINGE 0 ML IV SCH ×2 (02:05→09:14)
[2019-01-18] MEDS: CEFAZOLIN 2000MG 2,000 MG/15 ML SYR IV SCH (02:05)
[2019-01-18] MEDS: ENOXAPARIN INJ 40 MG/0.4 ML SYR SQ SCH ×2 (05:12→17:03)
[2019-01-18] MEDS: LEVOTHYROXINE SODIUM 200 MCG TABLET PO SCH (05:12)
--- NOTE | 2019-01-18 06:40 | Orthopedic Progress Note ---
Date of Service January 18, 2019 Assessment & Plan (1) Osteoarthritis of left knee: Overall she is doing fairly well. She will be seen by physical therapy this morning for ambulation and range of motion exercises. She is on oxycodone for pain. She is on Lovenox 40 mg subcu twice a day as bridging anticoagulation. She is also on Coumadin. She received her stress doses of hydrocortisone yesterday and we will continue to follow her hypotension. Right now she is asymptomatic. Tomorrow her dressing can be changed and she plans to be discharged home with [facility]. Present on Admission?: Yes Bethel Sierra was seen and examined at bedside this morning. Overall she is doing fairly well. She is having some pain and a burning sensation in her right knee. She was able to ambulate to the bathroom last night. She has not been into the hallways yet. She is in good spirits and has no other complaints. Physical Exam Musculoskeletal: On physical examination of the left knee, the dressing is clean and dry. Her legs out in full extension. She does not have active dorsiflexion of her ankle quite yet. She still some numbness on her foot. Results & Data Vital Signs (Past 12 Hours) Vital Signs Temp Pulse Resp BP BP Pulse Ox 01/18/19 03:08 36.4 C L 52 L 16 96/61 L 94 01/17/19 22:55 36.6 C 50 L 16 101/62 94 01/17/19 19:06 36.7 C 62 16 115/73 91 Diagnostic Findings Postoperative x-rays of the left knee show the prosthesis to be in anatomic alignment without any evidence of fracture, dislocation, or loosening. PG Care Time/CCT Total # of Minutes Spent Total Time Spent with Patient: Total time spent is greater than 50% in coordin ation of care (as documented) at patient's floor/unit and/or counseling patient:
[2019-01-18 06:48] LABS: Hematocrit (blood only) 35.3 % (37-47); Hemoglobin 11.8 g/dL (12.0-16.0); Mean Corpuscular Hgb Conc 33.4 g/dL (32-36); Mean Corpuscular Volume 86.1 fL (80-100); Mean Platelet Volume 10.1 fL (7.4-10.4); Platelet Count 205 K/uL (130-400); RDW Standard Deviation 40.7 fL (36.4-46.3); White Blood Count 11.57 K/uL (4.8-10.8)
[2019-01-18 07:26] LABS: BUN Creatinine Ratio 15.9 (10-20); Calcium 7.3 mg/dl (8.5-10.1); Creatinine Clr Calc Pharmacy 81.1 ml/min; Est GFR (African American) 93.9
[2019-01-18] MEDS ORDERED: METFORMIN HCL 500 MG TAB PO SCH ×2 (09:00→16:30)
[2019-01-18] MEDS: ACETAMINOPHEN 500 MG TAB PO SCH ×3 (09:04→23:11)
[2019-01-18] MEDS: MONTELUKAST SODIUM 10 MG TABLET PO SCH (09:04)
[2019-01-18] MEDS: OXYCODONE HCL IR 5 MG TAB (IMMEDIATE RELEASE) PO PRN ×3 (09:04→23:11)
[2019-01-18] MEDS: MULTIVITAMIN TAB PO SCH (09:05)
[2019-01-18] MEDS: FEXOFENADINE HCL 180 MG TAB PO SCH (09:05)
[2019-01-18] MEDS: SERTRALINE HCL 50 MG TABLET PO SCH (09:05)
[2019-01-18] MEDS: FUROSEMIDE 20 MG TAB PO SCH (09:05)
[2019-01-18] MEDS: PSEUDOEPHEDRINE HCL 30 MG TAB PO SCH (09:05)
[2019-01-18] MEDS: FOLIC ACID 1 MG TAB PO SCH (09:05)
[2019-01-18] MEDS: HYDROXYCHLOROQUINE SULFATE 200 MG TAB PO SCH (09:05)
[2019-01-18] MEDS: DOCUSATE SODIUM 100 MG CAP PO SCH ×2 (09:06→20:12)
[2019-01-18] MEDS: POTASSIUM CHLORIDE 20 MEQ TABCR PO SCH (09:06)
[2019-01-18] MEDS: CYANOCOBALAMIN 500 MCG TABLET (VITAMIN B-12) PO SCH (09:07)
[2019-01-18] MEDS: ATENOLOL 25 MG TABLET PO SCH (09:07)
[2019-01-18] MEDS: INSULIN ASPART 100 UNITS/ML 3 ML PEN SC SCH ×4 (09:10→21:01)
[2019-01-18] MEDS: ORTHO WARFARIN NOMOGRAM SCH (14:13)
[2019-01-18 15:06] LABS: INR 1.2 (0.9-1.1); Prothrombin Time 11.8 Seconds (9.0-12.0)
[2019-01-18] MEDS ORDERED: WARFARIN SOD 5 MG TAB PO SCH (16:00)
[2019-01-18] MEDS: PRAVASTATIN SOD 40 MG TAB PO SCH (20:11)
[2019-01-18] MEDS: FERROUS SULFATE 325 MG TAB PO SCH (20:11)
[2019-01-18] MEDS: SENNA 8.6 MG TAB PO SCH (20:12)
[2019-01-19] MEDS: LEVOTHYROXINE SODIUM 200 MCG TABLET PO SCH (05:23)
[2019-01-19] MEDS: ENOXAPARIN INJ 40 MG/0.4 ML SYR SQ SCH (05:23)
[2019-01-19] MEDS: OXYCODONE HCL IR 5 MG TAB (IMMEDIATE RELEASE) PO PRN ×2 (05:25→09:45)
[2019-01-19 06:21] LABS: INR 1.2 (0.9-1.1)
[2019-01-19] MEDS: ATENOLOL 25 MG TABLET PO SCH (07:20)
[2019-01-19] MEDS: HYDROXYCHLOROQUINE SULFATE 200 MG TAB PO SCH (07:21)
[2019-01-19] MEDS: CYANOCOBALAMIN 500 MCG TABLET (VITAMIN B-12) PO SCH (07:21)
[2019-01-19] MEDS: PSEUDOEPHEDRINE HCL 30 MG TAB PO SCH (07:21)
[2019-01-19] MEDS: ACETAMINOPHEN 500 MG TAB PO SCH (07:21)
[2019-01-19] MEDS: MULTIVITAMIN TAB PO SCH (07:21)
[2019-01-19] MEDS: FUROSEMIDE 20 MG TAB PO SCH (07:22)
[2019-01-19] MEDS: FEXOFENADINE HCL 180 MG TAB PO SCH (07:22)
[2019-01-19] MEDS: DOCUSATE SODIUM 100 MG CAP PO SCH (07:22)
[2019-01-19] MEDS: MONTELUKAST SODIUM 10 MG TABLET PO SCH (07:22)
[2019-01-19] MEDS: SERTRALINE HCL 50 MG TABLET PO SCH (07:22)
[2019-01-19] MEDS: FOLIC ACID 1 MG TAB PO SCH (07:22)
[2019-01-19] MEDS: POTASSIUM CHLORIDE 20 MEQ TABCR PO SCH (07:23)
[2019-01-19] MEDS: INSULIN ASPART 100 UNITS/ML 3 ML PEN SC SCH (07:41)
--- NOTE | 2019-01-19 08:28 | Progress Note ---
DATE: 01/19/2019 SUBJECTIVE: A 63-year-old white female postop day 2 from a left knee replacement. She is doing pretty well. Pretty painful at times. Therapy is going okay. She is needing the pain medicine. She is doing okay with the pain medicine. No chest pain or shortness of breath. Not feeling dizzy or lightheaded. OBJECTIVE: VITAL SIGNS: Temperature is 36.7. Vital signs stable. GENERAL: Shows a pleasant, middle-aged female. She is sitting up in her bedside chair, looks reasonably comfortable. EXTREMITIES: Examination of the left leg reveals the dressing to be clean, dry and intact. She can dorsiflex and plantarflex her foot appropriately. She is neurologically intact. ASSESSMENT: A 63-year-old white female postoperative day 2 from a left knee replacement, doing reasonably well. Pain is reasonably well controlled. She is neurologically intact. PLAN: 1. DVT prophylaxis including thigh-high TEDs, SCDs, and aspirin twice a day. 2. PT/OT. Weight bear as tolerated. Left total knee protocol. 3. Pain control, doing pretty well with current pain regimen. We will write for some oxycodone. 4. Disposition: She is going to be discharged to home with some home health later today.
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
[2019-01-29] MEDS ORDERED: ERGOCALCIFEROL 50,000 UNITS CAP PO SCH (09:00)
== END 2019-01-19 09:51 | disposition home health service (06) | DRG 470 ==
LOC: ASU 07:28 → 3E 12:28